=== PATIENT | female | born 1995 | race Caucasian/White ===

== ENCOUNTER 2016-07-08 21:23 | Emergency (ER) | payer SELFPAY ==
[~2016-07-08 21:23] MED LIST: FLAGYL500 M1 PO; IBUPROFEN600 M1 PO; METHERGINE0.2 M1 PO; NORCO 5-325 TA1 EACH PO; PRENATAL-U CAPS1 CAP PO; TYLENOL EXTRA500 M1 PO; VIBRAMYCIN100 M1 PO; ZOFRAN4 M2 PO
== END 2016-07-09 00:40 ==
LOC: EDMED 21:23
DX: R42 Dizziness and giddiness (principal); F10.129 Alcohol abuse with intoxication, unspecified; F17.200 Nicotine dependence, unspecified, uncomplicated
CPT/HCPCS: J1885